=== PATIENT | female | born 1935 | race Caucasian/White ===

== ENCOUNTER → 2016-05-07 | Outpatient (CLI) | payer MEDICARE, OTHER ==
[~2016-05-07] MED LIST: CALCCHW25 PO; CLAR10TA7 PO; FISH1000 PO; FOSA70TA PO; HYZA50TA2 PO; IBUP-232 PO; IPRA0.03 BU; LEVA500T PO; LUTE20CA PO; MUCI600T PO; REFR0.5D4 EACH EYE; ROSU20 PO
--- NOTE | 2016-05-08 22:58 | EKG ---
Date Performed: 05/07/2016 Time Performed: 13:30:06 PTAGE: 80 years EKG: Sinus rhythm INCOMPLETE RIGHT BUNDLE BRANCH BLOCK BORDERLINE ECG PREVIOUS TRACING : 12/24/2013 12.07 DOCTOR: Silvia Cisneros Interpretating Date/Time 05/08/2016 22:50:23
== END ==
LOC: HCAV 13:04
PROVIDERS: ATTEND Internal Medicine
DX: R07.9 Chest pain, unspecified (principal)
CPT/HCPCS: 93005